=== PATIENT | female | born 1995 | race African-American/Black ===

== ENCOUNTER 2023-02-07 14:15 | Inpatient (IN) | payer OTHER ==
[2023-02-07 14:54] VITALS: BMI 25.3
[2023-02-07] MEDS ORDERED: NALOXONE HCL (KLOXXADO) 8 MG SPRAY NS PRN (18:37)
[2023-02-07] MEDS ORDERED: ONDANSETRON *ODT* 4 MG TABLET SL PRN (18:37)
[2023-02-07] MEDS ORDERED: ACETAMINOPHEN 325 MG TABLET (FP) PO PRN (18:37)
[2023-02-07] MEDS ORDERED: hydrOXYzine PAMOATE 25 MG CAPSULE (FP) PO PRN (18:37)
[2023-02-07] MEDS ORDERED: BISMUTH SUBSALICYLATE 524 MG/30 ML PO PRN (18:37)
[2023-02-07] MEDS ORDERED: MAGNESIUM HYDROX 2400MG/30ML ORAL SUSPENSION 30 ML CUP PO PRN (18:37)
[2023-02-07] MEDS ORDERED: POLYETHYLENE GLYCOL (HEALTHYLAX) 3350 17 GM PACKET PO PRN (18:37)
[2023-02-07] MEDS ORDERED: MAG HYDROX/AL HYDROX/SIMETH 30 ML UNIT-DOSE CUP PO PRN (18:37)
[2023-02-07] MEDS ORDERED: DICYCLOMINE HCL 10 MG CAPSULE PO PRN (18:37)
[2023-02-07] MEDS ORDERED: NICOTINE POLACRILEX 2 MG GUM BUC PRN (18:37)
[2023-02-07] MEDS ORDERED: guaiFENesin 600 MG TABLET.ER (FP) PO PRN (18:37)
[2023-02-07] MEDS ORDERED: NALOXONE HCL 0.4 MG/ML VIAL IM PRN (18:37)
[2023-02-07] MEDS ORDERED: BENZOCAINE/MENTHOL (CHLORASEPTIC ) LOZENGE MM PRN (18:37)
[2023-02-07] MEDS ORDERED: BENZONATATE 200 MG CAPSULE PO PRN (18:37)
[2023-02-07] MEDS ORDERED: IBUPROFEN 400 MG TABLET (FP) PO PRN (18:37)
[2023-02-07] MEDS ORDERED: IBUPROFEN 600 MG TABLET (FP) PO PRN (18:37)
[2023-02-07] MEDS ORDERED: METHOCARBAMOL 500 MG TABLET PO PRN (18:37)
[2023-02-07] MEDS ORDERED: LOPERAMIDE HCL 2 MG CAPSULE PO PRN (18:37)
[2023-02-07] MEDS ORDERED: MELATONIN 5 MG TABLETS PO SCH (22:00)
[2023-02-07] MEDS ORDERED: THIAMINE HCL 100 MG TABLET (FP) PO SCH (22:00)
[2023-02-08 09:29] VITALS: BP 119/76; PULSE 90; RESP 17; TEMP 98
[2023-02-08] MEDS ORDERED: PRENATAL VITAMINS W/ FOLIC ACID TABLET (FP) PO SCH (10:00)
[2023-02-08 11:56] LABS: HEMATOCRIT 39.3 % (32.4-45.2); HEMOGLOBIN 13.4 GM/dL (10.7-15.3); MCH 31.9 pg (25.7-33.7); MEAN CELL VOLUME 93.8 fl (80-96); MEAN PLT VOLUME 9.9 fl (7.5-11.1); PLATELET COUNT 246 10^3/uL (134-434); RBC 4.19 M/mm3 (3.60-5.2); RDW 13.6 % (11.6-15.6); RETICULOCYTES 1.13 % (0.5-1.5); WHITE BLOOD COUNT 5.2 K/mm3 (4.0-10.0)
[2023-02-08 12:01] LABS: BLOOD UREA NITROGEN 4.1 mg/dL (7-18); CALCIUM 8.8 mg/dL (8.5-10.1)
[2023-02-08 12:03] LABS: ALBUMIN 3.7 g/dl (3.4-5.0)
[2023-02-08 12:05] LABS: CREATININE 0.6 mg/dL (0.55-1.3)
[2023-02-08 12:07] LABS: BILIRUBIN,TOTAL 0.6 mg/dL (0.2-1); TOT PROT 6.4 g/dl (6.4-8.2)
== END 2023-02-08 13:30 | disposition home or self-care (01) | DRG 774 ==
LOC: YASAS 14:15 → Y3N 18:58
PROVIDERS: ADMIT Allergy & Immunology; ATTEND Surgery
PROC: HZ2ZZZZ Detoxification Services for Substance Abuse Treatment (ICD-10-PCS; principal; 2023-02-07)
DX: F14.10 Cocaine abuse, uncomplicated (principal); F10.10 Alcohol abuse, uncomplicated; F17.210 Nicotine dependence, cigarettes, uncomplicated
CPT/HCPCS: 36415; 80053; 80305; 81025; 85027; 85045; 86593; 86780; 87635